=== PATIENT | male | born 1960 | race Caucasian/White ===

== ENCOUNTER 2019-05-07 04:28 | Inpatient (IN) | payer OTHER ==
[~2019-05-07] VITALS: Ht 185.4 cm; Wt 102.2 kg
[2019-05-07 05:04] LABS: BASOPHILS ABSOLUTE AUTO 0.14 K/mm3 (0.00-0.23); BASOPHILS PERCENT AUTO 1 % (0-2); EOSINOPHILS ABSOLUTE AUTO 0.21 K/mm3 (0.00-0.68); EOSINOPHILS PERCENT AUTO 1 % (0-6); Hemoglobin 17.9 g/dL (13.5-17.5); IMMATURE GRAN PERCENT AUTO 1 % (0-1); LYMPHOCYTES PERCENT AUTO 11 % (21-46); MONOCYTES ABSOLUTE AUTO 0.67 K/mm3 (0.16-1.47); MONOCYTES PERCENT AUTO 4 % (4-13); Mean Corpuscular HGB 28.1 pg (26.0-34.0); Mean Corpuscular HGB Conc 33.8 g/dL (31.5-36.5); Mean Corpuscular Volume 83 fL (80-100); Mean Platelet Volume 9.9 fL (9.1-12.4); NEUTROPHILS ABSOLUTE AUTO 12.88 K/mm3 (1.96-9.15); NEUTROPHILS PERCENT AUTO 82 % (41-73); Platelet Count 521 K/mm3 (150-400); RDW Coefficient Variation 16.1 % (11.7-14.2); RDW Standard Deviation 47.5 fL (35.1-46.3); Red Blood Cell Count 6.38 M/mm3 (4.30-5.90)
[2019-05-07 05:23] LABS: Alanine Aminotransfer (ALT/SGP 35 U/L (12-78); Albumin, Blood 4.3 g/dL (3.4-5.0); Anion Gap 10 mmol/L (6-16); Aspartate Aminotrans (AST/SGOT 20 U/L (12-37); Blood Urea Nitrogen 16 mg/dL (8-24); Bun/Creatinine Ratio 21.4 (12.0-20.0); CO2, Blood 24 mmol/L (21-32); Calcium, Blood 9.7 mg/dL (8.5-10.1); Chloride, Blood 108 mmol/L (98-108); Creatinine, Blood 0.75 mg/dL (0.60-1.20); Glomerular Filtration Rate >60 (60-); Glucose, Blood 140 mg/dL (70-99); Sodium, Blood 142 mmol/L (136-145)
[2019-05-07 05:27] LABS: Albumin/Globulin Ratio 1.2 (0.8-1.8); Alk Phos 79 U/L (50-136); Bilirubin, Total 0.5 mg/dL (0.1-1.0); Globulin, Blood 3.6 g/dL (2.2-4.0); Total Protein, Blood 7.9 g/dL (6.4-8.2); Troponin I <0.015 ng/mL (0.000-0.040)
--- NOTE | 2019-05-07 09:26 | NUR ---
eCHOCARDIOGRAM COMPLETED.
--- NOTE | 2019-05-07 10:00 | NUR ---
ARRIVAL FROM LINE FIXER PT ARRIVES FROM LINE FIXER AT 0725. HE IS AWAKE, A/O X 3, CALM AND COOPERATIVE. TR BAND SECURED ON R WRIST AND IN ARMBOARD. PT EDUCATED NOT USING R ARM OR HAND; DISPLAYS UNDERSTANDING. BP ELEAVTED 190S/110S. HYDRALAZINE 10 MG IVP GIVEN ALONG WITH ZOFRAN FOR NAUSEA. WILL MONITOR TRENDS AND NAUSEA. FAMILY UPDATED AT BEDSIDE. NS MIV INFUSING AT 200 ML/HR PER ORDER. PT UP TO TOILET WITH NO ASSIST. C/O CHEST PAIN 5/10; MD AWARE. ALSO C/O ABDOMINAL PAIN. ABDOMEN IS SOFT AND TENDER TO PALPATION DIFFUSELY. NAUSEA PERSISTED. FREELANCE MAKEUP ARTIST SHARON NOTIFIED AND T.O. FOR PROMETHAZINE GIVEN ALONG WITH GI COCKTAIL. PT NOW SLEEPING. WILL ATTEMPT TO DEFLATE TR BAND. WILL TAKE TO CT SOON ABLE.
--- NOTE | 2019-05-07 11:59 | NUR ---
REASSESSMENT PT WANTING TO SLEEP. NAUSEA IMPRPOVED, BUT HE REPORTS NOT HUNGRY. VSS. NSR, HR 70S. BP WNL. TR BAND REMOVED AND CLOTH DOT DRESSING C/D/I. ARM REMAINS IN ARMBOARD. SMALL HEMATOMA ABOVE PUNCTURE SITE. PT TAKEN DOWN FOR CT SCAN, NO ISSUES DURING TRANSPORT OR SCAN. EVALUATED BY ADARSH HERRERA AT BEDSIDE. CT SCAN RESULTS DISCUSSED WITH ADARSH LOO AND MD BOUDREAUX; NO CHANGE IN TREATMENT PLAN. WILL START HEPARIN GTT AT 1600; 6 HRS AFTER TR BAND REMOVAL. MIV NS INFUSING AT 200 ML/HR PER ORDER. WILL CONTINUE TO MONITOR.
--- NOTE | 2019-05-07 16:31 | NUR ---
REASSESSMENT MIV NS CONTINUES TO INFUSE PER ORDER. FACE IS FLUSHED; TEMP 99.4. PT REPORTS HAVING BEING TREATED FOR A SINUS INFECTION AND HAS BEEN ON ANTIOTICS BUT CANNOT RECALL WHAT IT IS. C/O MILD CHEST PAIN, 06/14. NAUSEA CONTROLLED; PT SITTING UP IN BED EATING A SANDWICH. DECLINED OFFER TO GET TO CHAIR. VSS. R WRIST REMAINS SECURED IN ARMBOARD; DRESSING C/D/I. PTT DRAWN; AWAITING RESULTS TO START HEPARIN GTT. WILL CONTINUE TO MONITOR.
[2019-05-07 18:18] LABS: Source, Urine Clean Catch
--- NOTE | 2019-05-07 18:23 | NUR ---
SHIFT SUMMARY PT ARRIVED FROM PIPE COVERER AND INSULATOR AT 0725 TODAY. TR BAND REMOVED AT 1100. ABDOMINAL CT OBTAINED. PT UP TO CHAIR WATCHING TV AT THIS TIME. HEPARIN GTT STARTED AT 1800 AND IS INFUSING AT 13 U/KG/HR PER ORDER. MIV NS CONTINUES TO INFUSE AT 200 ML/HR. NO COMPLAINTS AT THIS TIME. WILL CONTINUE TO MONITOR.
[2019-05-07 18:25] LABS: Bilirubin, Urine Neg (Neg); Blood, Urine Neg (Neg); Glucose Qualitative, Urine Neg (Neg); Ketones, Urine 2+ (Neg); Leukocyte Esterase, Urine Neg (Neg); Nitrite, Urine Neg (Neg); Protein, Urine 1+ (Neg); Urobilinogen, Urine NORM (Normal)
[2019-05-07 18:43] LABS: Appearance, Urine Clear (Clear); Color, Urine Yellow (P-Yellow)
[2019-05-07 18:47] LABS: U Cannabinoids Screen DETECTED; U Opiates Screen DETECTED
[2019-05-07 18:48] LABS: U Amphetamine Screen Not Detected; U Barbituate Screen DETECTED; U Benzodiazapine Screen Not Detected; U Buprenorphine Screen Not Detected; U Cocaine Screen Not Detected; U Methadone Screen Not Detected; U Methamphetamine Screen Not Detected; U Oxycodone Screen Not Detected; U Phencyclidine Screen Not Detected; U Propoxyphene Screen Not Detected
--- NOTE | 2019-05-07 19:32 | NUR ---
ASSUME CARE PT PRESENTS IN BED, A&OX4. APPROPRIATE, CALM. ON RA. HEPARIN GTT INFUSING AT 13 UNITS/KG/HR. LAST BAG OF NS INFUSING AT 200ML/HR.
--- NOTE | 2019-05-07 21:27 | NUR ---
TRANSFER NOTE PATIENT TRANSFERRED TO PCU AT 2114. DURING MY TIME WITH HIM, PT WAS A&OX4. ON RA. LUNGS CTAB. BOWEL TONES PRESENT IN ALL FOUR QUADRANTS. STRONG PULSES THROUGHOUT. TR BAND HAD BEEN OFF AND DRESSING C/D/I. PATIENT ABLE TO AMBULATE FROM BED TO WHEELCHAIR WITHOUT DIFFICULTY. TOLERATING DIET WELL AND DRINKING WATER WITHOUT N/V.
--- NOTE | 2019-05-07 21:50 | NUR ---
Pt arrives to PCU at 2122 with wildlife officer with Pt. Pt transported via WC, heprin gtt infusing at 13u/kg/hr verified with Wilian RN. Pt independant, steady gait to bathroom, voiding 400 mls into urinal. VSS. No apparent sign of distress. Pt conversing appropriately, alert and oriented. Able to make needs known. No acute concerns to note. R Radial site wnl. See shift assessment for detailed systems assessment. NS infusing 200mls/hr per orders.
[2019-05-08 00:51] LABS: BASOPHILS ABSOLUTE AUTO 0.06 K/mm3 (0.00-0.23); BASOPHILS PERCENT AUTO 1 % (0-2); EOSINOPHILS ABSOLUTE AUTO 0.17 K/mm3 (0.00-0.68); EOSINOPHILS PERCENT AUTO 1 % (0-6); Hematocrit 43.3 % (37.0-53.0); Hemoglobin 14.7 g/dL (13.5-17.5); IMMATURE GRAN ABSOLUTE AUTO 0.05 K/mm3 (0.00-0.10); IMMATURE GRAN PERCENT AUTO 0 % (0-1); LYMPHOCYTES ABSOLUTE AUTO 2.32 K/mm3 (0.84-5.20); LYMPHOCYTES PERCENT AUTO 19 % (21-46); MONOCYTES ABSOLUTE AUTO 0.92 K/mm3 (0.16-1.47); MONOCYTES PERCENT AUTO 8 % (4-13); Mean Corpuscular HGB 28.6 pg (26.0-34.0); Mean Corpuscular HGB Conc 33.9 g/dL (31.5-36.5); Mean Corpuscular Volume 84 fL (80-100); Mean Platelet Volume 9.9 fL (9.1-12.4); NEUTROPHILS PERCENT AUTO 71 % (41-73); Platelet Count 394 K/mm3 (150-400); RDW Coefficient Variation 15.9 % (11.7-14.2); Red Blood Cell Count 5.14 M/mm3 (4.30-5.90); White Blood Cell Count 12.22 K/mm3 (4.00-11.30)
[2019-05-08 01:20] LABS: Anion Gap 6 mmol/L (6-16); Blood Urea Nitrogen 11 mg/dL (8-24); Bun/Creatinine Ratio 16.2 (12.0-20.0); CHOL/HDL RATIO 2.3; CO2, Blood 24 mmol/L (21-32); Calcium, Blood 7.8 mg/dL (8.5-10.1); Chloride, Blood 111 mmol/L (98-108); Cholesterol 171 mg/dL (50-200); Creatinine, Blood 0.68 mg/dL (0.60-1.20); Glomerular Filtration Rate >60 (60-); Glucose, Blood 100 mg/dL (70-99); HDL Cholesterol 75 mg/dL (>39); LDL/HDL RATIO 1.1; Low Density Lipoprotein Chol 82 mg/dL (0-110); Potassium, Blood 3.4 mmol/L (3.5-5.5); Sodium, Blood 141 mmol/L (136-145); Triglycerides 70 mg/dL (30-160); Very Low Density Lipoprot Chol 14 mg/dL (6-32)
--- NOTE | 2019-05-08 05:41 | NUR ---
SHIFT SUMMARY Pt with no acute changes overnight. Sinus Bradycardia, lowest rate 46, pt asleep. When woken, rates in 60's. Pt denies chest pain or pressure, denies dizziness. S/p angio and RCA stent 05/07/19; R Radial access site wnl, dressing inplace, arm board in place and pt compliant with restrictions. Pt up ad ramiro, uses urinal, calls appropriately. Alert and oriented, no changes to mentation, no changes to oxygen demand; RA. No acute declines from initial shift assessment. No events on tele. Will continue to monitor.
--- NOTE | 2019-05-08 07:30 | NUR ---
ASSUMED CARE: RECEIVED BEDSIDE REPORT FROM NOC RN. PT APPEARS TO BE SLEEPING, VERAFIED HEPARIN INFUSION. ASSESSED PT NO ACUTE DISTRESS NOTED. PT DENIES PAIN. R RADIAL SITE APPEARS TO BE WNL NO BLEEDING OR SWELLING NOTED AT OR AROUND SITE. CLEAR DRESSING COVERING PUNCTURE SITE. CALL LIGHT IN REACH.
--- NOTE | 2019-05-08 09:00 | NUR ---
MEDICATION: PROVIDED PT WITH MORNING MEDICATIONS AND EDUCATION ABOUT HIS NEW MEDICATIONS AND SIDE EFFECTS.
[2019-05-08] MEDS ORDERED: ASPI81CH PO (09:07)
[2019-05-08] MEDS ORDERED: ATOR40TA PO (09:09)
[2019-05-08] MEDS ORDERED: LISI5 PO (09:12)
[2019-05-08] MEDS ORDERED: METO25ER PO (09:14)
[2019-05-08] MEDS ORDERED: NITR.4SL SL (09:14)
[2019-05-08] MEDS ORDERED: TICA90TA PO (09:15)
[2019-05-08] MEDS ORDERED: METO25 PO (09:20)
--- NOTE | 2019-05-08 10:00 | NUR ---
FAMILY: DAUGHTER CALLED TO CHECK ON HER FAUTHER. AFTER VERAFYING INFORMATION CAN BE GIVEN REVIEWED PATIENTS HOME MEDICATION LIST HE WILL BE SENT HOME WITH AND NOTIFIED HER PT IS BEING PREPPED FOR DISCHARGE AT THIS TIME.
--- NOTE | 2019-05-08 10:58 | NUR ---
DISCHARGE: PROVIDED PT WITH HIS DISCHARGE PACKET. PT EDUCATED ON R WOUND SITE CARE AND PERCAUTIONS. GAVE WRITTEN INFORMATION ABOUT NEW MEDICATIONS AND POSSIBLE SIDE EFFECTS. DISCONTINUED IVS. NO ACUTE DISTRESS NOTED PT DENEIS ANY CHEST PAIN. PT WALKED OUT THE DOOR WITH NO ASSISTANCE.
== END 2019-05-08 11:00 | disposition home or self-care (01) | DRG 229 ==
LOC: ER 04:28 → ICUW 05:18 → ICUE 06:18 → PCU 21:23
PROVIDERS: Emergency Medicine; Nurse Practitioner Acute Care; ADMIT Internal Medicine Interventional Cardiology
PROC: 02C00ZZ Extirpation of Matter from Coronary Artery, One Artery, Open Approach (ICD-10-PCS; principal; 2019-05-07)
PROC: 027034Z Dilation of Coronary Artery, One Artery with Drug-eluting Intraluminal Device, Percutaneous Approach (ICD-10-PCS; 2019-05-07)
PROC: B2111ZZ Fluoroscopy of Multiple Coronary Arteries using Low Osmolar Contrast (ICD-10-PCS; 2019-05-07)
DX: I21.3 ST elevation (STEMI) myocardial infarction of unspecified site (principal); I10 Essential (primary) hypertension; E78.5 Hyperlipidemia, unspecified; R62.50 Unspecified lack of expected normal physiological development in childhood; K21.9 Gastro-esophageal reflux disease without esophagitis; K42.9 Umbilical hernia without obstruction or gangrene; R73.9 Hyperglycemia, unspecified
CPT/HCPCS: 36415; 71045; 71260; 74177; 80048; 80053; 80061; 83036; 84484; 85025; 85347; 85730; 92973; 93005; 93010; 93306; 93454; 96374; 96375; 99152; 99153; 99285-25; A9270; C1725; C1753; C1757; C1769; C1874; C1887; C1894; C9606; J0360; J0461; J1644; J2250; J2270; J2405; J2550; J3010; J3246; J7030; Q9967

== ENCOUNTER 2021-06-08 12:39 | Emergency (ER) | payer OTHER ==
[~2021-06-08] VITALS: Ht 185.4 cm; Wt 99.8 kg
[~2021-06-08 12:39] MED LIST: ASPI81CH PO; ATOR40TA PO; LISI5 PO; METO25 PO; METO25ER PO; NITR.4SL SL; TICA90TA PO
[2021-06-08 15:25] LABS: BASOPHILS ABSOLUTE AUTO 0.08 K/mm3 (0.00-0.23); BASOPHILS PERCENT AUTO 1 % (0-2); EOSINOPHILS ABSOLUTE AUTO 0.28 K/mm3 (0.00-0.68); EOSINOPHILS PERCENT AUTO 3 % (0-6); Hematocrit 48.6 % (37.0-53.0); Hemoglobin 16.6 g/dL (13.5-17.5); IMMATURE GRAN ABSOLUTE AUTO 0.03 K/mm3 (0.00-0.10); IMMATURE GRAN PERCENT AUTO 0 % (0-1); LYMPHOCYTES ABSOLUTE AUTO 1.65 K/mm3 (0.84-5.20); LYMPHOCYTES PERCENT AUTO 19 % (21-46); MONOCYTES ABSOLUTE AUTO 0.58 K/mm3 (0.16-1.47); MONOCYTES PERCENT AUTO 7 % (4-13); Mean Corpuscular HGB 29.3 pg (26.0-34.0); Mean Corpuscular HGB Conc 34.2 g/dL (31.5-36.5); Mean Corpuscular Volume 86 fL (80-100); Mean Platelet Volume 10.5 fL (9.1-12.4); NEUTROPHILS ABSOLUTE AUTO 6.11 K/mm3 (1.96-9.15); NEUTROPHILS PERCENT AUTO 70 % (41-73); Platelet Count 449 K/mm3 (150-400); RDW Coefficient Variation 14.9 % (11.7-14.2); Red Blood Cell Count 5.66 M/mm3 (4.30-5.90); White Blood Cell Count 8.73 K/mm3 (4.00-11.30)
[2021-06-08 15:35] LABS: Anion Gap 6 mmol/L (6-16); Blood Urea Nitrogen 6 mg/dL (8-24); CO2, Blood 26 mmol/L (21-32); Calcium, Blood 9.4 mg/dL (8.5-10.1); Chloride, Blood 108 mmol/L (98-108); Creatinine, Blood 0.86 mg/dL (0.60-1.20); Glomerular Filtration Rate >60 (60-); Glucose, Blood 94 mg/dL (70-99); Potassium, Blood 3.8 mmol/L (3.5-5.5); Sodium, Blood 140 mmol/L (136-145)
== END 2021-06-08 18:55 | disposition home or self-care (01) ==
LOC: ER 12:39
PROVIDERS: Emergency Medicine
DX: K42.9 Umbilical hernia without obstruction or gangrene (principal); I10 Essential (primary) hypertension; Z88.5 Allergy status to narcotic agent; Z79.82 Long term (current) use of aspirin; Z79.899 Other long term (current) drug therapy
CPT/HCPCS: 36415; 74177; 76857; 80048; 83605; 85025; 99284-25; Q9967

== ENCOUNTER 2021-10-31 07:36 | Day surgery (SDC) | payer OTHER ==
[~2021-10-31] VITALS: Ht 185.4 cm; Wt 107.4 kg
[~2021-10-31 07:36] MED LIST changes: +ASPI325 PO; +LOSA25 PO; +[UNRECOGNIZED DRUG - CODE] PO
--- NOTE | 2021-10-31 11:29 | NUR ---
REPORT FROM DAVID BRICE RN. PT AXOX4, ABLE TO REPOSITION SELF IN BED. TOLERATING ICE CHIPS, NO NAUSEA REPORTED. PATIENT HAS ONE INCISION SITE ON UMBILICUS THAT IS COVERED WITH CLEAN, DRY AND INTACT GAUZE AND WINDOW TAPE. ABDOMINAL BINDER IN PLACE.
== END 2021-10-31 23:40 | disposition home or self-care (01) ==
LOC: ORSCMMR 07:36 → ORD 09:00 → ORSCMMR 09:00
PROVIDERS: Surgery
PROC: 0WUF0JZ Supplement Abdominal Wall with Synthetic Substitute, Open Approach (ICD-10-PCS; principal; 2021-10-31 09:00)
PROC: 0DBU0ZZ Excision of Omentum, Open Approach (ICD-10-PCS; principal; 2021-10-31 09:00)
DX: K42.0 Umbilical hernia with obstruction, without gangrene (principal); I10 Essential (primary) hypertension; I25.2 Old myocardial infarction; Z79.82 Long term (current) use of aspirin; Z79.899 Other long term (current) drug therapy
CPT/HCPCS: A9270; C1781; J0690; J1100; J1885; J2250; J2405; J2704; J2795; J3010; J7120

== ENCOUNTER 2022-07-17 08:39 | Day surgery (SDC) | payer OTHER ==
[~2022-07-17] VITALS: Ht 185.4 cm; Wt 109.0 kg
--- NOTE | 2022-07-17 12:36 | NUR ---
07/17/22 1236 Melida Henriquez SPLINT PLACED BILATERALLY IN NASAL CAVITY. LOT # [id number] EXP 04/04/27
[2022-07-17 14:34] VITALS: BP 188/103
--- NOTE | 2022-07-17 16:29 | NUR ---
07/17/22 162Jose Lucas PT WAS HYPERTENSIVE THROUGHOUT STAY IN STEP DOWN. DR. OHARA WAS CONSULTED AND PT WAS MEDICATED PER HIS ORDERS. DR. OHARA APPROVED PT'S DISCHARGE WITH DIASTOLIC BLOOD PRESSURE BELOW 100. PER DR. OHARA'S ORDERS, PT WAS INSTRUCTED TO TAKE HIS NORMAL DOSE OF [place] UPON RETURN HOME, MONITOR BLOOD PRESSURE AT HOME AND FOLLOW UP WITH PCP.
== END 2022-07-17 16:02 | disposition home or self-care (01) ==
LOC: ORSCSDS 08:39
PROVIDERS: Otolaryngology
PROC: 099R8ZZ Drainage of Left Maxillary Sinus, Via Natural or Artificial Opening Endoscopic (ICD-10-PCS; principal; 2022-07-17 10:00)
PROC: 09SM4ZZ Reposition Nasal Septum, Percutaneous Endoscopic Approach (ICD-10-PCS; principal; 2022-07-17 10:00)
PROC: 09TL8ZZ Resection of Nasal Turbinate, Via Natural or Artificial Opening Endoscopic (ICD-10-PCS; principal; 2022-07-17 10:00)
PROC: 8E09XBZ Computer Assisted Procedure of Head and Neck Region (ICD-10-PCS; principal; 2022-07-17 10:00)
PROC: 09BS8ZZ Excision of Right Frontal Sinus, Via Natural or Artificial Opening Endoscopic (ICD-10-PCS; principal; 2022-07-17 10:00)
PROC: 099Q8ZZ Drainage of Right Maxillary Sinus, Via Natural or Artificial Opening Endoscopic (ICD-10-PCS; principal; 2022-07-17 10:00)
PROC: 09BT8ZZ Excision of Left Frontal Sinus, Via Natural or Artificial Opening Endoscopic (ICD-10-PCS; principal; 2022-07-17 10:00)
DX: J32.4 Chronic pansinusitis (principal); J34.2 Deviated nasal septum; I10 Essential (primary) hypertension; I25.2 Old myocardial infarction; Z79.82 Long term (current) use of aspirin; Z79.899 Other long term (current) drug therapy; F17.290 Nicotine dependence, other tobacco product, uncomplicated
CPT/HCPCS: 88305; 88311; A9270; J0171; J0360; J1100; J2250; J2370; J2405; J2550; J2704; J3010; J7120